=== PATIENT | male | born 1970 | race Caucasian/White ===

== ENCOUNTER 2018-05-27 20:03 | Emergency (ER) | payer OTHER ==
[~2018-05-27] VITALS: Ht 175.3 cm; Wt 88.5 kg
[2018-05-27 20:16] VITALS: BP 184/109
[2018-05-27] MEDS ORDERED: AMOXICILLIN 50500 MG PO (20:28)
[2018-05-27] MEDS ORDERED: CORTISPORIN OTI10 M2 OTIC (20:28)
== END 2018-05-27 20:41 | disposition home or self-care (01) ==
LOC: ER 20:03
DX: S00.411A Abrasion of right ear, initial encounter (principal); H61.21 Impacted cerumen, right ear; H60.91 Unspecified otitis externa, right ear; X58.XXXA Exposure to other specified factors, initial encounter; Y92.89 Other specified places as the place of occurrence of the external cause; Y93.89 Activity, other specified; Y99.8 Other external cause status

== ENCOUNTER 2018-10-20 08:03 | Emergency (ER) | payer OTHER ==
[~2018-10-20] VITALS: Ht 172.7 cm; Wt 90.7 kg
[~2018-10-20 08:03] MED LIST: AMOXICILLIN 50500 MG PO; CORTISPORIN OTI10 M2 OTIC
[2018-10-20 08:10] VITALS: BP 140/82
[2018-10-20] MEDS ORDERED: NAPROSYN500 MG PO (08:40)
[2018-10-20] MEDS ORDERED: BUTALB-APAP-CA1 EACH PO (08:40)
== END 2018-10-20 09:04 | disposition home or self-care (01) ==
LOC: ER 08:03
DX: L72.3 Sebaceous cyst (principal); R45.4 Irritability and anger; R51 Headache; F43.20 Adjustment disorder, unspecified; R20.2 Paresthesia of skin; F17.210 Nicotine dependence, cigarettes, uncomplicated

== ENCOUNTER 2018-11-12 17:58 | Emergency (ER) | payer OTHER ==
[~2018-11-12] VITALS: Ht 172.7 cm; Wt 90.7 kg
[~2018-11-12 17:58] MED LIST changes: +BUTALB-APAP-CA1 EACH PO; +NAPROSYN500 MG PO
[2018-11-12 18:57] VITALS: BP 150/93
[2018-11-12] MEDS ORDERED: CENTANY30 GM TOP (19:09)
== END 2018-11-12 18:57 | disposition home or self-care (01) ==
LOC: ER 17:58
DX: S51.832A Puncture wound without foreign body of left forearm, initial encounter (principal); F17.210 Nicotine dependence, cigarettes, uncomplicated; W26.8XXA Contact with other sharp object(s), not elsewhere classified, initial encounter; Y93.89 Activity, other specified; Y92.89 Other specified places as the place of occurrence of the external cause; Y99.8 Other external cause status